=== PATIENT | male | born 1980 | race Caucasian/White ===

== ENCOUNTER 2023-06-13 16:15 | Emergency (ER) | payer OTHER, SELFPAY ==
[2023-06-13 16:35] VITALS: BP 128/77; PULSE 61; RESP 18; TEMP 36.3; O2SAT 100
--- NOTE | 2023-06-13 16:51 | ED.ABDPAIN ---
HPI - Abdominal Pain General Chief Complaint: Abdominal Pain Stated Complaint: abdominal pain,diarrhea Time Seen by Provider: 06/13/23 16:43 Source: patient and RN notes reviewed Mode of arrival: ambulatory Limitations: no limitations History of Present Illness HPI narrative: Patient presents today complaining of left-sided abdominal pain x3 days, worse today. States he woke up with severe left lower quadrant abdominal cramping with intermittent stabbing at 5:00 a.m. this morning with diarrhea. At 10:30 a.m. today and 14 30 today, patient had bloody mucus stool. His abdominal pain has continued to worsen. Denies fever. Currently rates his pain 5/10. He has been drinking electrolyte fluids to stay hydrated today. He had a colonoscopy 2 years ago that was normal except a few polyps. Related Data Home Medications Medication Instructions Recorded Confirmed No Home Medications 06/13/23 06/13/23 Allergies Allergy/AdvReac Type Severity Reaction Status Date / Time amoxicillin [From Amoxil] AdvReac Hives Verified 06/13/23 16:54 Review of Systems Review of Systems: CONSTITUTIONAL: Denies body aches, fever, chills, or sweats. EYES: Denies visual changes, redness, or discharge. ENT: Denies rhinorrhea, congestion, sore throat, or otalgia. CARDIOVASCULAR: Denies chest pain, palpitations, or edema. RESPIRATORY: Denies cough or dyspnea. GASTROINTESTINAL: Denies nausea, vomiting.+ abdominal pain, bloody diarrhea GENITOURINARY: Denies dysuria or hematuria. SKIN: Denies rash, itching, or wounds. MUSCULOSKELETAL: Denies back pain, joint pain, or myalgia. NEUROLOGIC: Denies headache, numbness, tingling, or weakness. PSYCH: Denies depression or anxiety. [facility] [place] Past Medical History Medical History (Updated 06/13/23 @ 16:59 by Julia Patel, [facility], ) GERD (gastroesophageal reflux disease) Comments At time of signature, I have reviewed and agree with nursing past medical, surgical, social and family history unless otherwise noted. Please see nursing chart for further information. There is no relevant family history pertinent to the presenting complaint Exam Narrative: GENERAL: Well-appearing, well-nourished, and in mild pain distress. HEAD: Normocephalic, atraumatic. EYES: EOMI. No redness or drainage. Conjunctivae normal. ENT: Mucous membranes pink and moist. NECK: Normal AROM. CHEST: No respiratory distress. Clear to auscultation. HEART: Regular rate and rhythm. No murmur appreciated. ABDOMEN: Soft, nondistended, normal active bowel sounds.+ left lower quadrant abdominal tenderness with rebound. EXTREMITIES: Normal range of motion. No edema. SKIN: Warm, dry, no rash. Capillary refill normal. Normal skin turgor. NEURO: No focal deficits. Alert and oriented x3. Gait steady. PSYCH: Normal affect. No signs of depression or anxiety. Course Course Level of Care: Express Care Visit Vital Signs Vital signs: Vital Signs Temperature 97.4 F L 06/13/23 16:35 Pulse Rate 61 06/13/23 16:35 Respiratory Rate 18 06/13/23 16:35 Blood Pressure 128/77 06/13/23 16:35 Pulse Oximetry 100 06/13/23 16:35 Oxygen Delivery Room Air 06/13/23 16:35 Temperature 97.4 F L 06/13/23 16:35 Pulse Rate 61 06/13/23 16:35 Respiratory Rate 18 06/13/23 16:35 Blood Pressure 128/77 06/13/23 16:35 Pulse Oximetry 100 06/13/23 16:35 Oxygen Delivery Room Air 06/13/23 16:35 Reviewed Transfer Transfered to: [facility] Transportation: Other (Private vehicle) Transfer rationale: Abdominal pain, bloody diarrhea Accepting physician: Erlin MDM - Abdominal Pain MDM Narrative Medical decision making narrative: Due to patient's symptoms, he will be transferred to the emergency room for further evaluation. Differential Diagnosis Differential diagnosis: Likely diverticulitis and other (Colitis, malignancy) Critical Care Time Critical Care Time Critical Care Time: No Discharge Plan Disch
== END 2023-06-13 17:05 | disposition short-term general hospital (02) ==
PROVIDERS: Emergency Provider Nurse Practitioner
DX: R10.32 Left lower quadrant pain (principal); R19.7 Diarrhea, unspecified; K92.1 Melena; K21.9 Gastro-esophageal reflux disease without esophagitis
CPT/HCPCS: 99212; G0463

== ENCOUNTER 2023-06-13 17:21 | Emergency (ER) | payer OTHER, SELFPAY ==
--- NOTE | ~2023-06-13 | CT_ITS ---
CT of the Abdomen and Pelvis: Indication: Abdominal pain Technique: 2.5 mm axial scans were obtained through the abdomen and pelvis following intravenous adm inistration of 100 cc of Omnipaque 350. Dose reduction technique was used on this scan by utilizing a utomated exposure control and iterative reconstruction technique. The dose-length product (DLP) was 1 262.70 mGy-cm. Findings: Scans through the lung bases are unremarkable. The liver, spleen, pancreas, gallbladder, adrenals and kidneys are within normal limits. No evidence of aortic aneurysm. No lymphadenopathy. Questionable mild wall thickening descending colon versus underdistention. No bowel obstruction. No a bscess or free air. Images through the pelvis were performed. Urinary bladder unremarkable. No pelvic mass seen. No ascit es. Impression: Questionable mild wall thickening of descending colon versus underdistention. Correlate for infectiou s/inflammatory colitis. Reviewed, dictated and finalized at [facility]. RT/EXPORT SPECIALIST Impression: Questionable mild wall thickening of descending colon versus underdistention. C orrelate for infectious/inflammatory colitis.
[2023-06-13 18:32] VITALS: BP 131/101; PULSE 55; RESP 16; TEMP 36.4; O2SAT 99
[2023-06-13 21:40] LABS: Basophils Absolute Auto 0.1 K/mm3 (0.0-0.1); Basophils Percent Auto 0.7 % (0.2-1.2); Eosinophils Absolute Auto 0.3 K/mm3 (0-0.3); Eosinophils Percent Auto 2.7 % (0-4.4); Hematocrit 48.3 % (42.0-52.0); Hemoglobin 15.8 g/dL (14.0-18.0); Immature Granulocyte Absolute 0.02 K/mm3 (0.00-0.031); Immature Granulocyte Percent A 0.2 % (0-0.5); Lymphocytes Absolute Auto 2.17 K/mm3 (0.9-3.2); Lymphocytes Percent Auto 23.6 % (18.3-44.2); Mean Corpuscular HGB Conc 32.7 g/dl (32-36); Mean Corpuscular Volume 94.7 fl (80-100); Mean Platelet Volume 10.1 fl (7.4-10.4); Monocytes Absolute Auto 0.8 K/mm3 (0.1-0.6); Monocytes Percent Auto 8.5 % (2.6-8.5); Neutrophils Absolute Auto 5.9 K/mm3 (1.3-6.7); Neutrophils Percent Auto 64.3 % (45.5-73.1); Platelet Count Result 239 k/mm3 (150-375); Red Cell Distribution Width 12.9 % (11.5-14.5); White Blood Count 9.2 K/mm3 (4.5-10.0)
[2023-06-13 21:42] LABS: Appearance Urine Clear (Clear); Bilirubin Urine Negative (Negative); Blood Urine Negative (Negative); Color Urine Dark Yellow (Yellow); Glucose Urine UA Negative (Negative); Ketones Urine Negative (Negative); Leukocyte Esterase Ur Negative LEU/UL (Negative); Nitrate Urine Negative (Negative); Protein Urine Negative (Negative); Specific Grav Ur 1.027 (1.001-1.035); pH Urine 5.5 (5.0-9.0)
[2023-06-13 21:47] LABS: Add Urine Microscopic? NO
[2023-06-13 21:51] LABS: Alanine Aminotransferase 30 U/L (6-50); Albumin Level 4.7 g/dL (3.5-5.1); Alkaline Phosphatase 49 U/L (38-126); Anion Gap 8 mmol/L (8-16); Aspartate Amino Transferase 45 U/L (17-59); Bilirubin,Total 0.7 mg/dL (0.2-1.3); Blood Urea Nitrogen 13 mg/dL (9-20); Calcium 9.8 mg/dL (8.4-10.2); Carbon Dioxide 29 mmol/L (22-30); Chloride 103 mmol/L (98-107); Estimated CRCL calculation 83 ml/min; Estimated Glomerular Filt Rate 60; Glucose 100 mg/dL (65-110); Lipase 31 U/L (23-300); Potassium 4.2 mmol/L (3.4-5.0); Sodium 140 mmol/L (137-145)
[2023-06-13 21:52] VITALS: BP 131/88; PULSE 62; RESP 18; O2SAT 100
[2023-06-13 23:54] VITALS: PULSE 60; RESP 15; TEMP 36.4; O2SAT 100
[2023-06-14 00:32] LABS: Prothrombin Time 13.4 Seconds (11.1-14.7)
[2023-06-14 00:33] LABS: Partial Thromboplastin Time 29.6 SECONDS (22.3-36.8)
[2023-06-14] MEDS: SODIUM CHLORIDE 0.9% IV 1,000 ML 999 ML IV CONT (01:07)
[2023-06-14] MEDS: ONDANSETRON INJ 4 MG/2 ML VIAL IV PUSH (01:07)
--- NOTE | 2023-06-14 01:07 | ED.ABDPAIN ---
HPI - Abdominal Pain General Chief Complaint: Abdominal Pain Stated Complaint: abd pain/blood in stool Time Seen by Provider: 06/13/23 23:59 Source: patient Mode of arrival: ambulatory Limitations: no limitations History of Present Illness HPI narrative: This is a 42 year old male that presents to the ER for abdominal pain and diarrhea. Ongoing over the last 3 days. Reports crampy abdominal pain. Reports noting some blood in the stool today. Denies fevers. Related Data Allergies Allergy/AdvReac Type Severity Reaction Status Date / Time shrimp Allergy Anaphylactic Verified 06/13/23 17:22 Shock amoxicillin [From Amoxil] AdvReac Hives Verified 06/13/23 17:22 Review of Systems Review of Systems: CONSTITUTIONAL: Denies fever GASTROINTESTINAL: Reports abdominal pain, nausea, and diarrhea. GENITOURINARY: Denies dysuria All systems reviewed & are unremarkable except as noted in HPI and below PMFSH Past Medical History Medical History (Updated 06/14/23 @ 03:32 by Karolyn Alegria PA-C) GERD (gastroesophageal reflux disease) Surgical History Surgical History (Updated 06/14/23 @ 01:09 by Karolyn Alegria PA-C) History of appendectomy Social History Social History (Updated 06/14/23 @ 01:09 by Karolyn Alegria PA-C) Substance use: never Exam Narrative: GENERAL: Well-appearing, well-nourished, and in no acute distress. HEAD: Normocephalic, atraumatic. EYES: EOMI. CHEST: Clear to auscultation. No respiratory distress. No wheezes rales or rhonchi HEART: Regular rate and rhythm. No murmur heard. Normal peripheral pulses. ABDOMEN: Soft, nondistended, normal active bowel sounds. EXTREMITIES: Normal range of motion. No edema. SKIN: Warm, dry, no rash. NEURO: No focal deficits. Alert and oriented x3. PSYCH: Normal mood and affect Course Course Emergency Course: Patient updated on workup and agrees with plan of care Vital Signs Vital signs: Vital Signs Temperature 97.6 F 06/13/23 18:32 Pulse Rate 55 L 06/13/23 18:32 Respiratory Rate 16 06/13/23 18:32 Blood Pressure 131/101 H 06/13/23 18:32 Pulse Oximetry 99 06/13/23 18:32 Oxygen Delivery Room Air 06/13/23 18:32 Temperature 97.6 F 06/13/23 23:54 Pulse Rate 50 L 06/14/23 02:43 Respiratory Rate 14 06/14/23 02:43 Blood Pressure 111/73 06/14/23 02:43 Pulse Oximetry 97 06/14/23 02:43 Oxygen Delivery Room Air 06/13/23 18:32 MDM - Abdominal Pain MDM Narrative Medical decision making narrative: Patient presents to the emergency department for abdominal pain and diarrhea. Patient is afebrile and nontoxic appearing. His vitals are stable. CBC without leukocytosis. Metabolic panel without concerning findings. CT abdomen/pelvis shows proctocolitis. Patient will be started on oral antibiotics and was instructed to follow up with gastroenterology. He was given warnings to return to the ER Differential Diagnosis Differential diagnosis: Likely diverticulitis and gastroenteritis Lab Data Attestation: I reviewed the patient's lab results. 06/13/23 21:32 06/13/23 21:32 Labs: Lab Results 06/13/23 06/13/23 06/14/23 Range/Units 21:32 21:33 00:09 WBC 9.2 (4.5-10.0) K/mm3 RBC 5.10 (4.6-6.20) M/mm3 Hgb 15.8 (14.0-18.0) g/dL Hct 48.3 (42.0-52.0) % MCV 94.7 (80-100) fl MCH 31.0 (26-34) pg MCHC 32.7 (32-36) g/dl RDW 12.9 (11.5-14.5) % Plt Count 239 (150-375) k/mm3 MPV 10.1 (7.4-10.4) fl Immature Gran % (Auto) 0.2 (0-0.5) % Neut % (Auto) 64.3 (45.5-73.1) % Lymph % (Auto) 23.6 (18.3-44.2) % [place] % (Auto) 8.5 (2.6-8.5) % Eos % (Auto) 2.7 (0-4.4) % Baso % (Auto) 0.7 (0.2-1.2) % Lymph # (Auto) 2.17 (0.9-3.2) K/mm3 [place] # (Auto) 0.8 H (0.1-0.6) K/mm3 Eos # (Auto) 0.3 (0-0.3) K/mm3 Baso # (Auto) 0.1 (0.0-0.1) K/mm3 Abs Immat Gran (auto) 0.02 (0.00-0.031) K/mm3 Absolute Neuts (auto)
[2023-06-14] MEDS: MORPHINE SULFATE (*CRX) 4 MG/ML INJ IV PUSH (01:08)
[2023-06-14 01:23] VITALS: BP 124/84; PULSE 50; RESP 16; O2SAT 99
[2023-06-14 02:43] VITALS: BP 111/73; PULSE 50; RESP 14; O2SAT 97
[2023-06-14 03:47] VITALS: BP 114/72; PULSE 52; RESP 16; O2SAT 99
== END 2023-06-14 03:48 | disposition home or self-care (01) ==
PROVIDERS: Emergency Medicine; Emergency Provider Physician Assistant
DX: K52.9 Noninfective gastroenteritis and colitis, unspecified (principal); K21.9 Gastro-esophageal reflux disease without esophagitis
CPT/HCPCS: 36415; 74177; 80053; 81003; 83690; 85025; 85610; 85730; 96361; 96374; 96375; 99284; J2270; J2405; J7030; Q9967

== ENCOUNTER 2023-11-29 13:17 | Emergency (ER) | payer OTHER, SELFPAY ==
--- NOTE | 2023-11-29 13:25 | ED.URI ---
HPI - URI/Sore Throat General Chief Complaint: Upper Respiratory Infection Stated Complaint: Cold symptoms Time Seen by Provider: 11/29/23 13:39 Source: patient and RN notes reviewed Mode of arrival: ambulatory Limitations: no limitations History of Present Illness HPI Narrative: 42-year-old male presents with concern for sore throat, nasal congestion, low-grade fever, fatigue for 4 days. Reports he has been using [id number] medications with little relief. Reports the a friend with similar symptoms to has a viral illness. MD elicited complaint: sore throat Related Data Home Medications Medication Instructions Recorded Confirmed No Home Medications 11/29/23 11/29/23 Allergies Allergy/AdvReac Type Severity Reaction Status Date / Time shrimp Allergy Severe Anaphylactic Verified 11/29/23 13:20 Shock amoxicillin [From Amoxil] AdvReac Mild Hives Verified 11/29/23 13:20 Review of Systems Review of Systems: CONSTITUTIONAL: Report malaise, fatigue, low-grade fever. EYES: Denies visual changes, redness, or discharge. ENT: Reports rhinorrhea, congestion, and sore throat. CARDIOVASCULAR: Denies chest pain, palpitations, or edema. RESPIRATORY: Reports cough. Denies dyspnea. GASTROINTESTINAL: Denies abdominal pain, nausea, vomiting, diarrhea SKIN: Denies rash or itching. MUSCULOSKELETAL: Reports myalgia. NEUROLOGIC: Denies headache. All systems reviewed & are unremarkable except as noted in HPI and below PMFSH Past Medical History Medical History (Updated 11/29/23 @ 13:44 by Lashell Romo NP) GERD (gastroesophageal reflux disease) Surgical History Surgical History (Updated 06/14/23 @ 01:09 by Karolyn Alegria PA-C) History of appendectomy Social History Social History (Updated 06/14/23 @ 01:09 by Karolyn Alegria PA-C) Substance use: never Comments At time of signature, agree with nursing past medical, surgical, social and family history. There is no relevant family history pertinent to the presenting complaint Exam Narrative: GENERAL: Well-appearing, well-nourished, and in no acute distress. HEAD: Normocephalic EYES: PERRLA, conjunctivae clear ENT: Nares clear, turbinates edematous and erythematous, clear discharge. Mucous membranes moist. TM pearly felton with sharp light reflex bilaterally; no tragal tenderness. Oropharynx not erythematous without lesions. Tonsils not enlarged and without exudate, no drooling, no hoarseness, no trismus, uvula midline. NECK: Supple. No lymphadenopathy CHEST: Clear to auscultation, breath sounds equal. No wheezing, rhonchi, rales, or stridor. No respiratory distress, speaks in full sentences. HEART: Regular rate and rhythm. No murmur heard. SKIN: Warm, dry, no rash. NEURO: Alert and oriented x3. PSYCH: Normal mood and affect Course Course Emergency Course: Patient is aware of diagnosis, understands and agrees to treatment plan. Anticipatory guidance given. Patient agrees to follow-up as directed and is aware of reasons to seek care at the emergency department. Portions of this record may have been created with voice recognition software Level of Care: Express Care Visit Vital Signs Vital signs: Vital Signs Temperature 97.0 F L 11/29/23 13:31 Pulse Rate 60 11/29/23 13:31 Respiratory Rate 16 11/29/23 13:31 Blood Pressure 124/84 11/29/23 13:31 Pulse Oximetry 98 11/29/23 13:31 Oxygen Delivery Room Air 11/29/23 13:31 Temperature 97.0 F L 11/29/23 13:31 Pulse Rate 60 11/29/23 13:31 Respiratory Rate 16 11/29/23 13:31 Blood Pressure 124/84 11/29/23 13:31 Pulse Oximetry 98 11/29/23 13:31 Oxygen Delivery Room Air 11/29/23 13:31 Reviewed. MDM - URI/Sore Throat MDM Narrative Medical decision making narrative: Differential diagnosis considered: Dooley virus, strep pharyngitis, allergic rhinitis, upper respiratory tract infection, sinusitis, rhinosinusitis, nasopharyngitis. viral pharyngitis, otitis med
[2023-11-29 13:31] VITALS: BP 124/84; PULSE 60; RESP 16; TEMP 36.1; O2SAT 98
== END 2023-11-29 13:46 | disposition home or self-care (01) ==
PROVIDERS: Emergency Provider Nurse Practitioner
DX: J06.9 Acute upper respiratory infection, unspecified (principal); K21.9 Gastro-esophageal reflux disease without esophagitis
CPT/HCPCS: 87081; 87880; 99213; G0463

== ENCOUNTER 2023-12-03 08:18 | Emergency (ER) | payer OTHER, SELFPAY ==
[2023-12-03 08:27] VITALS: BP 112/79; PULSE 54; RESP 18; TEMP 36.3; O2SAT 96
--- NOTE | 2023-12-03 08:45 | ED.GENADULT ---
HPI - General Adult General Chief complaint: Eye Problems Stated complaint: Eye Irritation Time Seen by Provider: 12/03/23 08:33 Source: patient and RN notes reviewed Mode of arrival: ambulatory Limitations: no limitations History of Present Illness HPI narrative: Patient presents today complaining of right eye redness that started yesterday and has spread to his left eye this morning. States his eyes were matted shut this morning. Reports some mild itching, but no pain. Denies drainage. He used 1 drop of Zaditor last night in the right eye without relief. Patient was seen at [facility] 4 days ago and diagnosed with viral URI. States his cough will not improve. Denies shortness of breath or fever. Related Data Home Medications Medication Instructions Recorded Confirmed [id number] cap 12/03/23 50 mg-300 mg-40 mg capsule (Fioricet) pantoprazole 40 mg tablet,delayed 40 mg PO HS 12/03/23 12/03/23 release Allergies Allergy/AdvReac Type Severity Reaction Status Date / Time shrimp Allergy Severe Anaphylactic Verified 12/03/23 08:31 Shock amoxicillin [From Amoxil] AdvReac Mild Hives Verified 12/03/23 08:31 Review of Systems Review of Systems: CONSTITUTIONAL: Denies body aches, fever, chills, or sweats. EYES: Denies visual changes, or discharge. + bilateral eye redness, matting, mild itching ENT: Denies rhinorrhea, or otalgia.+ congestion, sore CARDIOVASCULAR: Denies chest pain, palpitations, or edema. RESPIRATORY: Denies dyspnea. GASTROINTESTINAL: Denies abdominal pain, nausea, vomiting, or diarrhea. GENITOURINARY: Denies dysuria or hematuria. SKIN: Denies rash, itching, or wounds. MUSCULOSKELETAL: Denies back pain, joint pain, or myalgia. NEUROLOGIC: Denies headache, numbness, tingling, or weakness. PSYCH: Denies depression or anxiety. [facility] Past Medical History Medical History GERD (gastroesophageal reflux disease) Surgical History Surgical History History of appendectomy Social History Social History Substance use: never Comments At time of signature, I have reviewed and agree with nursing past medical, surgical, social and family history unless otherwise noted. Please see nursing chart for further information. There is no relevant family history pertinent to the presenting complaint Exam Narrative: GENERAL: Mildly ill-appearing, well-nourished, and in no acute distress. HEAD: Normocephalic, atraumatic. EYES: EOMI. PERRL. Bilateral moderately injected conjunctiva and mild chemosis. No active drainage. Lids and lashes normal.. ENT: Mucous membranes pink and moist. Nares congested. No rhinorrhea. TMs normal bilaterally. Throat normal. Uvula midline. NECK: Normal AROM. Supple. No lymphadenopathy. CHEST: No respiratory distress. Clear to auscultation. Deep breath elicits coughing on every exhalation. HEART: Regular rate and rhythm. No murmur appreciated. EXTREMITIES: Normal range of motion. No edema. SKIN: Warm, dry, no rash. Capillary refill normal. Normal skin turgor. NEURO: No focal deficits. Alert and oriented x3. Gait steady. PSYCH: Normal affect. No signs of depression or anxiety. Course Course Level of Care: Express Care Visit Vital Signs Vital signs: Vital Signs Temperature 97.4 F L 12/03/23 08:27 Pulse Rate 54 L 12/03/23 08:27 Respiratory Rate 18 12/03/23 08:27 Blood Pressure 112/79 12/03/23 08:27 Pulse Oximetry 96 12/03/23 08:27 Oxygen Delivery Room Air 12/03/23 08:27 Temperature 97.4 F L 12/03/23 08:27 Pulse Rate 54 L 12/03/23 08:27 Respiratory Rate 18 12/03/23 08:27 Blood Pressure 112/79 12/03/23 08:27 Pulse Oximetry 96 12/03/23 08:27 Oxygen Delivery Room Air 12/03/23 08:27 Reviewed Medical Dec
== END 2023-12-03 08:53 | disposition home or self-care (01) ==
PROVIDERS: Emergency Provider Nurse Practitioner
DX: H10.33 Unspecified acute conjunctivitis, bilateral (principal); J40 Bronchitis, not specified as acute or chronic; K21.9 Gastro-esophageal reflux disease without esophagitis
CPT/HCPCS: 99213; G0463